=== PATIENT | female | born 1960 | race Caucasian/White ===

== ENCOUNTER → 2016-12-11 | Outpatient (CLI) | payer BC | DX: Z00.00 Encounter for general adult medical examination without abnormal findings (principal); E78.00 Pure hypercholesterolemia, unspecified ==

== ENCOUNTER → 2016-12-24 | Outpatient (CLI) | payer BC ==
--- NOTE | 2016-12-29 09:30 | Diagnostic Imaging Report ---
Bilateral screening mammogram. The current study was also evaluated with a Computer Aided Detection (CAD) system. INDICATION: Screening. No current complaints stated on the questionnaire. COMPARISON: 10/18/2014. FINDINGS: The breasts are composed of scattered fibroglandular densities. There is an asymmetry developed in the outer aspect of the left breast with lobulated oval shape measuring around 1 cm. The right breast is unchanged from the prior exams. IMPRESSION: Focal compression view and ultrasound evaluation for lateral left breast asymmetry is recommended. ACR BI-RADS Category 0: Incomplete. (Needs additional imaging evaluation). Result letter will be mailed to the patient. Note: At least 10% of breast cancer is not imaged by mammography. Dictated by: Dictated on workstation # [id number]
== END ==
LOC: RAD 11:26
PROVIDERS: ATTEND Internal Medicine
DX: Z12.31 Encounter for screening mammogram for malignant neoplasm of breast (principal)
CPT/HCPCS: 77067

== ENCOUNTER → 2017-01-12 | Outpatient (CLI) | payer BC ==
--- NOTE | 2017-01-12 09:09 | Diagnostic Imaging Report ---
EXAMINATION: Left breast diagnostic mammogram with a Computer Aided Detection (CAD) system. INDICATION: Lump in the outer aspect of the left breast. FINDINGS: There is a confirmed nodule in the outer aspect of the left breast with lobulated margins measuring 1.2 cm in size. There is suggestion of a fatty hilum in favor of an intramammary lymph node. IMPRESSION: Confirmed 1.2 cm lobulated nodule in the upper outer aspect of the left breast, probably an intramammary lymph node. Ultrasound evaluation is pending. ACR BI-RADS Category 0: Incomplete. (Needs additional imaging evaluation). Result letter will be mailed to the patient. Note: At least 10% of breast cancer is not imaged by mammography. Dictated by: Dictated on workstation # [id number]
--- NOTE | 2017-01-12 13:39 | Diagnostic Imaging Report ---
EXAMINATION: Left breast ultrasound. INDICATION: Nodule in the upper outer aspect of the left breast seen on mammography. FINDINGS: There is an elongated simple appearing cyst seen at the 2 o'clock zone 4 cm from the nipple measuring 0.8 x 0.5 x 0.9 cm. The rest of the outer aspect of the left breast was scanned with no underlying abnormality. IMPRESSION: There is a 9 mm oval simple cyst at the 2 o'clock zone 4 cm from the nipple which matches the mammographic abnormality with no suspicious finding. Annual screening mammograms are recommended. ACR BI-RADS Category 1: Negative. Dictated by: Dictated on workstation # [id number]
== END ==
LOC: RAD 08:25
PROVIDERS: ATTEND Internal Medicine
DX: N60.02 Solitary cyst of left breast (principal)
CPT/HCPCS: 76642

== ENCOUNTER → 2017-10-23 | Outpatient (CLI) | payer BC ==
--- NOTE | 2017-10-23 11:10 | Diagnostic Imaging Report ---
PROCEDURE: CT sinuses without contrast TECHNIQUE: Multiple contiguous axial images were obtained through the sinuses without the use of intravenous contrast. Coronal and sagittal reformations were then performed. INDICATION: Chronic sinusitis. Frontal sinus is clear. Ethmoid air cells and sphenoid sinus are clear. Bilateral maxillary sinuses are clear. Ostiomeatal complexes are patent. The nasal septum is midline. The mastoid air cells are well aerated. IMPRESSION: No evidence of sinusitis. Dictated by: Dictated on workstation # [id number]
== END ==
LOC: RAD 10:45
PROVIDERS: ATTEND Internal Medicine
DX: J32.9 Chronic sinusitis, unspecified (principal)
CPT/HCPCS: 70486

== ENCOUNTER → 2018-01-20 | Outpatient (CLI) | payer BC ==
--- NOTE | 2018-01-20 12:08 | Diagnostic Imaging Report ---
INDICATION: Routine screening. Comparison is made with prior exam from 12/24/2016 and 10/18/2014 and 10/12/2014. 2-D and 3-D bilateral screening mammography was performed with a Computer Aided Detection (CAD) system. FINDINGS: Both breasts are heterogeneously dense, limiting the sensitivity of mammography. There is a circumscribed density in the lateral portion of the left breast which appears to be larger when compared with prior exam. This has been previously shown to represent a simple cyst and is consistent with an enlarging cyst. No new mass is identified. No malignant appearing microcalcifications are seen. IMPRESSION: No mammographic features suspicious for malignancy are identified. ACR BI-RADS Category 2: Benign findings. Result letter will be mailed to the patient. Note: At least 10% of breast cancer is not imaged by mammography. Dictated by: Dictated on workstation # [id number]
== END ==
LOC: RAD 09:38
PROVIDERS: ATTEND Internal Medicine
DX: Z12.31 Encounter for screening mammogram for malignant neoplasm of breast (principal)
CPT/HCPCS: 77067

== ENCOUNTER → 2018-04-22 | Outpatient (CLI) | payer BC ==
--- NOTE | 2018-04-22 07:59 | Diagnostic Imaging Report ---
PROCEDURE: US Gallbladder. TECHNIQUE: Multiple real-time grayscale images were obtained over the right upper quadrant in various projections. INDICATION: Right upper quadrant abdominal pain FINDINGS: Grayscale imaging of the gallbladder reveals no intraluminal filling defect. There is no gallbladder wall thickening or pericholecystic fluid. No intra or extrahepatic biliary ductal dilatation is identified. There is a minimal hyperechoic focus in the anterior cortex of the right kidney which could represent fatty nodule. There is no posterior shadowing to suggest stone. There is no hydronephrosis or free fluid. No pancreatic, abdominal aortic or inferior vena caval abnormality is identified. IMPRESSION: Unremarkable gallbladder ultrasound. There may be small fatty lesion measuring up to 0.5 cm in size in the left kidney. Dictated by: Dictated on workstation # [id number]
== END ==
LOC: RAD 06:43
PROVIDERS: ATTEND Nurse Practitioner Family
DX: R10.11 Right upper quadrant pain (principal)
CPT/HCPCS: 76705

== ENCOUNTER → 2018-05-06 | Outpatient (CLI) | payer BC ==
[~2018-05-06] MED LIST: CATHETER FLUSH 10 ML SYR IV PRN
[2018-05-06 10:14] LABS: BASOPHILS % (AUTO) 1 % (0-10); EOSINOPHILS # (AUTO) 0.2 10^3/uL (0.0-0.3); EOSINOPHILS % (AUTO) 2 % (0-10); HEMATOCRIT 39 % (35-52); HEMOGLOBIN 13.2 G/DL (11.5-16.0); LYMPHOCYTES # (AUTO) 3.2 X 10^3 (1.0-4.0); LYMPHOCYTES % (AUTO) 46 % (12-44); MEAN CORPUSCULAR HEMOGLOBIN 30 PG (25-34); MEAN CORPUSCULAR HGB CONC 34 G/DL (32-36); MEAN CORPUSCULAR VOLUME 90 FL (80-99); MEAN PLATELET VOLUME 10.3 FL (7.4-10.4); MONOCYTES # (AUTO) 0.6 X 10^3 (0.0-1.0); MONOCYTES % (AUTO) 8 % (0-12); NEUTROPHILS % (AUTO) 43 % (42-75); PLATELET COUNT 259 10^3/uL (130-400); RED BLOOD COUNT 4.34 10^6/uL (4.35-5.85)
[2018-05-06 10:38] LABS: ALANINE AMINOTRANSFERASE 14 U/L (0-55); ALBUMIN 4.3 GM/DL (3.2-4.5); ALKALINE PHOSPHATASE 44 U/L (40-136); AMYLASE 34 U/L (25-125); BILIRUBIN,TOTAL 0.5 MG/DL (0.1-1.0); BUN/CREATININE RATIO 13; CARBON DIOXIDE 24 MMOL/L (21-32); CHLORIDE 106 MMOL/L (98-107); GFR ESTIMATED > 60; GLUCOSE 87 MG/DL (70-105); LIPASE 17 U/L (8-78); POTASSIUM 4.1 MMOL/L (3.6-5.0); SODIUM 139 MMOL/L (135-145); TOTAL PROTEIN 7.4 GM/DL (6.4-8.2)
[2018-05-06 10:52] LABS: ERYTHROCYTE SEDIMENTATION RATE 6 MM/HR (0-30)
--- NOTE | 2018-05-06 13:49 | Diagnostic Imaging Report ---
INDICATION: Abdominal pain. TECHNIQUE: Patient was administered 5 mCi technetium 99m Choletec intravenously and imaging of over the abdomen was performed. After 60 minutes gallbladder was not visualized. Patient then walked for 5 minutes and gallbladder was visualized. Ensure was administered and a gallbladder ejection fraction was calculated. FINDINGS: This homogeneous uptake of activity by the liver. There is excretion of activity into the common duct. Activity does pass into the gallbladder. There is passage into the small bowel. Gallbladder ejection fraction is abnormally low at 12%. Normal values are 33% or greater. IMPRESSION: 1. No evidence of cystic duct or common bile duct obstruction. 2. Abnormally low gallbladder ejection fraction of 12%. Dictated by: Dictated on workstation # [id number]
== END ==
LOC: CARD 09:56
PROVIDERS: ATTEND Internal Medicine
DX: Z00.00 Encounter for general adult medical examination without abnormal findings (principal); R70.0 Elevated erythrocyte sedimentation rate; R10.84 Generalized abdominal pain
CPT/HCPCS: 36415; 78227; 80053; 82150; 83690; 85025; 85652

== ENCOUNTER 2018-05-24 05:41 | Outpatient (CLI) | payer BC ==
[~2018-05-24] VITALS: Ht 160 cm; Wt 62.6 kg
[2018-05-24] MEDS ORDERED: ESTR0.5T PO (14:48)
[2018-05-24] MEDS ORDERED: LEVO50TA6 PO (14:48)
== END 2018-05-24 15:09 | disposition home or self-care (01) ==
LOC: PREOP 05:41
PROVIDERS: ATTEND Surgery
DX: Z01.818 Encounter for other preprocedural examination (principal)

== ENCOUNTER 2018-05-28 09:38 | Day surgery (SDC) | payer BC ==
[~2018-05-28] VITALS: Ht 160 cm; Wt 58.7 kg
[~2018-05-28 09:38] MED LIST changes: -CATHETER FLUSH 10 ML SYR IV PRN; +ESTR0.5T PO; +LEVO50TA6 PO
--- OUTSIDE RECORDS SUMMARY | 2018-05-28 09:41 | XMS REPORT | Clinical Summary ---
Author Author User, [employer] Organization Brittany Miguel DO, KARSONP Address Unknown Phone Allergies, Adverse Reactions, Alerts Allergy Name Reaction Description Start Date Severity Status Provider No Known Allergies Kevin Carson Conditions or Problems Problem Name Problem Code Onset Date Status Entry Date Provider Comment Standard Description Annotate HYPERTHYROIDISM 242.90 Resolved Brittany Miguel Thyrotoxicosis without mention of goiter or other cause, and without mention of thyrotoxic crisis or storm CHEST PAIN, ATYPICAL 786.59 Resolved Brittany Miguel Other chest pain RIGHT 719.41 Resolved Brittany Miguel Pain in joint involving shoulder region THYROID MASS 240.9 Resolved Brittany Miguel Goiter, unspecified HRT V07.4 Active Brittany Miguel Hormone replacement therapy (postmenopausal) NEVUS 216.9 Resolved Brittany Miguel Benign neoplasm of skin, site unspecified MENOPAUSAL SYNDROME 627.0 Active Brittany Miguel Premenopausal menorrhagia LEG PAIN, LEFT 729.5 Resolved Brittany Miguel Pain in limb EDEMA LEG 782.3 Resolved Brittany Miguel Edema HYPOTHYROIDISM, POSTSURGICAL 244.0 Active Brittany Miguel Postsurgical hypothyroidism PALPITATIONS, OCCASIONAL 785.1 Resolved Brittany Miguel Palpitations SYNCOPE 780.2 Resolved Brittany Miguel Syncope and collapse WELL WOMAN V70.0 Active Brittany Miguel Routine general medical examination at a health care facility ABNORMAL MAMMOGRAM, UNSPECIFIED 793.80 Active Brittany Miguel Abnormal mammogram, unspecified Medication List Medication Instructions Start Date Stop Date Generic Name NDC Status Provider Patient Instruction LEVOTHYROXINE SODIUM 50 MCG TABS 1 PO DAILY LEVOTHYROXINE SODIUM 06606599821 Active Tara Medina PREMARIN 0.9 MG TABS 1 PO DAILY ESTROGENS CONJUGATED 23232806988 Active Brittany Miguel PYRIDIUM 200 MG TAB 1 PO TID prn urinary urgency PHENAZOPYRIDINE HCL 31865745949 No Longer Active Christiana Estrada CIPRO 250 MG TABS 1 PO BID for 3 days CIPROFLOXACIN HCL 69985542002 No Longer Active Christiana Estrada CENESTIN 0.9 MG TABS 1 PO daily ESTROGENS CONJ SYNTHETIC A 40421067440 No Longer Active Tara Medina Immunizations Vaccine Administration Date Value Standard Description Influenza vaccine given Declines influenza virus vaccine, unspecified formulation Vital Signs Date Name Value Unit Range Description blood pressure, diastolic - 8462-4 74 mm[Hg] BP richey blood pressure, systolic - 8480-6 120 mm[Hg] BP sys pulse rate E&M - 8867-4 66 /min Heart rate respiratory rate E&M - 9279-1 14 /min Resp rate temperature E&M 98.6 [degF] Body temperature weight E&M - 3141-9 140 [lb_av] Weight Measured Diagnostic Results Date Name Value Unit Range Description Clinical Lists Update: CBC,CMP,FLP,TSH,FREE T4 - Chemistry Estimated Glomerular Filtration Rate (calc) >60 mL/min/1.73m2 glucose, plasma fasting 92 mg/dL albumin, serum 3.6 g/dL alkaline phosphatase, serum 61 U/L urea nitrogen, blood 12 mg/dL calcium, serum 8.3 mg/dL chloride, serum 104 mmol/L cholesterol, serum 201 mg/dL sodium, serum 136 mmol/L triglyceride, serum, fasting 139 mg/dL bilirubin, serum, total 0.4 mg/dL alanine aminotransferase (SGPT), serum 27 U/L aspartate aminotransferase (SGOT), serum 17 U/L protein, total, serum 7.5 g/dL potassium, serum 4.1 mmol/L LDL cholesterol, serum 129 mg/dL thyroid stimulating hormone, serum 0.56 u[iU]/mL HDL cholesterol, serum 44 mg/dL thyroxine, serum, free 0.70 ng/dL creatinine, serum 0.70 mg/dL carbon dioxide, venous blood 26 mmol/L Clinical Lists Update: CBC,CMP,FLP,TSH,FREE T4 - Hematology platelet count 242 10*3/mm3 erythrocyte (RBC) count 4.30 10*6/mm3 leukocyte count, blood 6.5 10*3/mm3 mean corpuscular volume, RBC 93.9 fL red blood cell distribution width 11.8 % hemoglobin, blood 13.2 g/dL hematocrit, blood 40.3 % Encounters Code Encounter Date Provider Facility CPT-20283 Ofc Vst, Est Level IV 14:35:51 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 Brittany Miguel DO FACP CPT-49746 Ofc Vst, Est Level IV 10:39:24 CDT Brittany Miguel DO, FACP CPT-02934 Ofc Vst, Est Level V 11:35:02 CDT Brittany Miguel DO, FACP CPT-96473 Ofc Vst, Est Level IV 14:21:30 CDT Brittanyshahla Miguel [facility] CPT-16522 Ofc Vst, Est Level IV 14:26:06 CDT Brittany Miguel DO, [facility] CPT-37272 Ofc Vst, New Level III 15:41:29 CDT Brittany Miguel DO, FACP Procedures Code Procedure Name Date Entry Date Standard Description CPT-97082 Preventive, Est, (40-64) 17:59:01 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 CPT-56626 Preventive, Est, (40-64) 15:37:23 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 CPT-07170 Preventive, Est, (40-64) 13:13:07 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
--- OUTSIDE RECORDS SUMMARY | 2018-05-28 09:41 | XMS REPORT | Clinical Summary ---
Author Author User, [employer] Brittany Miguel DO, FACP Address Unknown Phone Allergies, Adverse Reactions, Alerts [...] storm CHEST PAIN, ATYPICAL 786.59 Resolved Brittany Miugel Other chest pain RIGHT 719.41 Resolved Brittany [...] MCG TABS 1 PO DAILY LEVOTHYROXINE SODIUM 44797998915 Active Tara Medina PREMARIN 0.9 MG TABS 1 PO DAILY ESTROGENS CONJUGATED 74063827510 Active Brittany Miguel PYRIDIUM 200 MG TAB 1 PO TID prn urinary urgency PHENAZOPYRIDINE HCL 49311261541 No Longer Active Christiana Estrada CIPRO 250 MG TABS 1 PO BID for 3 days CIPROFLOXACIN HCL 52241542462 No Longer Active Christiana Estrada CENESTIN 0.9 MG TABS 1 PO daily ESTROGENS CONJ SYNTHETIC A 54630952755 No Longer Active Tara Medina Immunizations Vaccine [...] % Encounters Code Encounter Date Provider Facility CPT-24175 Ofc Vst, Est Level IV 14:35:51 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 Brittany Miguel DO FACP CPT-88465 Ofc Vst, Est Level IV 10:39:24 CDT Brittany Miguel DO, FACP CPT-24217 Ofc Vst, Est Level V 11:35:02 CDT Brittany Miguel DO FACP CPT-52939 Ofc Vst, Est Level IV 14:21:30 CDT Brittanyshahla Miguel [facility] [facility] CPT-85954 Ofc Vst, Est Level IV 14:26:06 CDT Brittany Miguel DO, [place] CPT-44209 Ofc Vst, New Level III 15:41:29 CDT Brittany Miguel DO, FACP Procedures Code Procedure Name Date Entry Date Standard Description CPT-36536 Preventive, Est, (40-64) 17:59:01 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 CPT-59560 Preventive, Est, (40-64) 15:37:23 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 CPT-47143 Preventive, Est, (40-64) 13:13:07 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
--- OUTSIDE RECORDS SUMMARY | 2018-05-28 09:42 | XMS REPORT | Clinical Summary ---
Author Author User, [employer] Organization Brittany Miguel DO, KARSONP Address Unknown [...] MCG TABS 1 PO DAILY LEVOTHYROXINE SODIUM 74753374437 Active Tara Medina PREMARIN 0.9 MG TABS 1 PO DAILY ESTROGENS CONJUGATED 02885483554 Active Brittany Miguel PYRIDIUM 200 MG TAB 1 PO TID prn urinary urgency PHENAZOPYRIDINE HCL 50389782672 No Longer Active Christiana Estrada CIPRO 250 MG TABS 1 PO BID for 3 days CIPROFLOXACIN HCL 85974060711 No Longer Active Christiana Estrada CENESTIN 0.9 MG TABS 1 PO daily ESTROGENS CONJ SYNTHETIC A 07408873864 No Longer Active Tara Medina Immunizations Vaccine [...] % Encounters Code Encounter Date Provider Facility CPT-61386 Ofc Vst, Est Level IV 14:35:51 TALENT BUYER Brittany Miguel DO FACP CPT-85859 Ofc Vst, Est Level IV 10:39:24 CDT Brittany Miguel DO, FACP CPT-63515 Ofc Vst, Est Level V 11:35:02 CDT Brittany Miguel DO, FACP CPT-52858 Ofc Vst, Est Level IV 14:21:30 CDT Brittanyshahla Miguel [facility] CPT-50874 Ofc Vst, Est Level IV 14:26:06 CDT Brittany Miguel DO, [facility] CPT-62870 Ofc Vst, New Level III 15:41:29 CDT Brittany Miguel DO, FACP Procedures Code Procedure Name Date Entry Date Standard Description CPT-04901 Preventive, Est, (40-64) 17:59:01 TALENT BUYER CPT-81487 Preventive, Est, (40-64) 15:37:23 TALENT BUYER CPT-54181 Preventive, Est, (40-64) 13:13:07 TALENT BUYER
--- OUTSIDE RECORDS SUMMARY | 2018-05-28 09:42 | XMS REPORT | Clinical Summary ---
Author Author celestino olmos DO, [place] [address] Phone Unavailable Allergies, Adverse Reactions, Alerts Allergy Name Reaction Description Start Date Severity Status Provider No Known Allergies Kevin Carson Conditions or Problems Problem Name Problem Code Onset Date Status Entry Date Provider Comment Standard Description Annotate HRT V07.4 Active Brittany Miguel HORMONE REPLACEMENT THERAPY (POSTMENOPAUSAL) MENOPAUSAL SYNDROME 627.0 Active Brittany Miguel PREMENOPAUSAL MENORRHAGIA HYPOTHYROIDISM, POSTSURGICAL 244.0 Active Brittany Miguel POSTSURGICAL HYPOTHYROIDISM WELL WOMAN V70.0 Active Brittany Miguel ROUTINE GENERAL MEDICAL EXAMINATION AT HEALTH CARE FACILITY Medication List Medication Instructions Start Date Stop Date Generic Name NDC Status Provider Patient Instruction LEVOTHROID 50 MCG TABS 1 PO daily LEVOTHYROXINE SODIUM Active Brittany Miguel PREMARIN 0.9 MG TABS 1 PO DAILY ESTROGENS CONJUGATED 14090649478 Active Tara Medina Immunizations Vaccine Administration Date Value Standard Description Influenza vaccine Declines influenza virus vaccine, unspecified formulation Vital Signs Date Name Value Unit Range Description blood pressure, diastolic 80 mm[Hg] BP richey blood pressure, systolic 122 mm[Hg] BP sys pulse rate E&M 78 /min Heart rate respiratory rate E&M 14 /min Resp rate weight E&M 142 [lb_av] Weight Measured Diagnostic Results Date Name Value Unit Range Description Clinical Lists Update: CBC,CMP,FLP,TSH - Chemistry Estimated Glomerular Filtration Rate (calc) >60 mL/min/1.73m2 glucose, plasma fasting 89 mg/dL albumin, serum 3.1 g/dL alkaline phosphatase, serum 67 U/L urea nitrogen, blood 11 mg/dL calcium, serum 8.5 mg/dL chloride, serum 103 mmol/L cholesterol, serum 213 mg/dL sodium, serum 136 mmol/L triglyceride, serum, fasting 95 mg/dL bilirubin, serum, total 0.3 mg/dL alanine aminotransferase (SGPT), serum 40 U/L aspartate aminotransferase (SGOT), serum 24 U/L protein, total, serum 7.7 g/dL potassium, serum 3.8 mmol/L LDL cholesterol, serum 139 mg/dL thyroid stimulating hormone, serum 0.47 u[iU]/mL HDL cholesterol, serum 55 mg/dL thyroxine, serum, free 0.80 ng/dL creatinine, serum 0.63 mg/dL carbon dioxide, venous blood 27 mmol/L Clinical Lists Update: CBC,CMP,FLP,TSH - Hematology platelet count 239 10*3/mm3 erythrocyte (RBC) count 4.33 10*6/mm3 leukocyte count, blood 7.2 10*3/mm3 mean corpuscular volume, RBC 92.7 fL red blood cell distribution width 12.1 % hemoglobin, blood 13.1 g/dL hematocrit, blood 40.1 %
--- OUTSIDE RECORDS SUMMARY | 2018-05-28 09:42 | XMS REPORT | Clinical Summary ---
Author Author User, [employer] Organization Brittany Miguel DO, KARSONP Address Unknown [...] MCG TABS 1 PO DAILY LEVOTHYROXINE SODIUM 62118724033 Active Tara Medina PREMARIN 0.9 MG TABS 1 PO DAILY ESTROGENS CONJUGATED 29254394484 Active Brittany Miguel PYRIDIUM 200 MG TAB 1 PO TID prn urinary urgency PHENAZOPYRIDINE HCL 53912498148 No Longer Active Christiana Estrada CIPRO 250 MG TABS 1 PO BID for 3 days CIPROFLOXACIN HCL 74407005044 No Longer Active Christiana Estrada CENESTIN 0.9 MG TABS 1 PO daily ESTROGENS CONJ SYNTHETIC A 32274357823 No Longer Active Tara Medina Immunizations Vaccine [...] % Encounters Code Encounter Date Provider Facility CPT-84597 Ofc Vst, Est Level IV 14:35:51 LEVER OPERATOR Brittany Miguel DO FACP CPT-76936 Ofc Vst, Est Level IV 10:39:24 CDT Brittany Miguel DO, FACP CPT-29232 Ofc Vst, Est Level V 11:35:02 CDT Brittany Miguel DO, FACP CPT-23061 Ofc Vst, Est Level IV 14:21:30 CDT Brittanyshahla Miguel [facility] CPT-59515 Ofc Vst, Est Level IV 14:26:06 CDT Brittany Miguel DO, [facility] CPT-89063 Ofc Vst, New Level III 15:41:29 CDT Brittany Miguel DO, FACP Procedures Code Procedure Name Date Entry Date Standard Description CPT-52569 Preventive, Est, (40-64) 17:59:01 LEVER OPERATOR CPT-76303 Preventive, Est, (40-64) 15:37:23 LEVER OPERATOR CPT-61701 Preventive, Est, (40-64) 13:13:07 LEVER OPERATOR
--- OUTSIDE RECORDS SUMMARY | 2018-05-28 09:42 | XMS REPORT | Continuity of Care Document ---
Author Author [facility] Organization [facility] Address Unknown Phone Unavailable Allergies Active Description Code Type Severity Reaction Onset Reported/Identified Relationship to Patient Clinical Status Yes No Known Drug Allergies [id number] Drug Allergy Unknown N/A 05/24/2018 Medications There is no data. Problems Date Dx Coded Attending Type Code Diagnosis Diagnosed By 10/22/2015 Ot 242.90 THYROTOX NOS NO CRISIS 10/22/2015 Ot 244.0 POSTSURGICAL HYPOTHYROID 10/22/2015 Ot 627.0 PREMENOPAUSE MENORRHAGIA 10/22/2015 Ot 729.5 PAIN IN LIMB 10/22/2015 Ot 780.2 SYNCOPE AND COLLAPSE 10/22/2015 Ot 782.3 EDEMA 10/22/2015 Ot 785.1 PALPITATIONS 10/22/2015 Ot 786.59 CHEST PAIN NEC 10/22/2015 Ot V07.4 HORMONE REPLACEMENT THERAPY (POSTMENOPAU 10/24/2015 SINGH DO, ANDREINA Ot E89.0 POSTPROCEDURAL HYPOTHYROIDISM 10/24/2015 ANDREINA SINGH DO Ot Z00.00 ENCNTR FOR GENERAL ADULT MEDICAL EXAM W/ 10/31/2015 MOHAN SINGH DOI Ot E89.0 POSTPROCEDURAL HYPOTHYROIDISM 10/31/2015 ANDREINA SINGH DO Ot Z00.00 ENCNTR FOR GENERAL ADULT MEDICAL EXAM W12/11/2016 Ot 242.90 THYROTOX NOS NO CRISIS 12/11/2016 Ot 244.0 POSTSURGICAL HYPOTHYROID 12/11/2016 Ot 627.0 PREMENOPAUSE MENORRHAGIA 12/11/2016 Ot 729.5 PAIN IN LIMB 12/11/2016 Ot 780.2 SYNCOPE AND COLLAPSE 12/11/2016 Ot 782.3 EDEMA 12/11/2016 Ot 785.1 PALPITATIONS 12/11/2016 Ot 786.59 CHEST PAIN NEC 12/11/2016 Ot V07.4 HORMONE REPLACEMENT THERAPY (POSTMENOPAU 12/11/2016 SINGH DO, ANDREINA Ot E89.0 POSTPROCEDURAL HYPOTHYROIDISM 12/11/2016 SINGH DO, ANDREINA Ot Z00.00 ENCNTR FOR GENERAL ADULT MEDICAL EXAM W12/12/2016 SINGH DO, ANDREINA Ot E78.00 PURE HYPERCHOLESTEROLEMIA, UNSPECIFIED 12/12/2016 SINGH DO, ANDREINA Ot Z00.00 ENCNTR FOR GENERAL ADULT MEDICAL EXAM W12/24/2016 SINGH DO, ANDREINA Ot E78.00 PURE HYPERCHOLESTEROLEMIA, UNSPECIFIED 12/24/2016 SINGH DO, ANDREINA Ot Z00.00 ENCNTR FOR GENERAL ADULT MEDICAL EXAM W12/25/2016 SINGH DO, ANDREINA Ot Z12.31 ENCNTR SCREEN MAMMOGRAM FOR MALIGNANT NE 01/12/2017 SINGH DO, ANDREINA Ot Z12.31 ENCNTR SCREEN MAMMOGRAM FOR MALIGNANT NE 01/28/2017 SINGH DO, ANDREINA Ot N60.02 SOLITARY CYST OF LEFT BREAST 10/26/2017 SINGH DO, ANDREINA Ot J32.9 CHRONIC SINUSITIS, UNSPECIFIED 11/04/2017 SINGH DO, ANDREINA Ot J32.9 CHRONIC SINUSITIS, UNSPECIFIED 12/15/2017 SINGH DO, ANDREINA Ot E78.00 PURE HYPERCHOLESTEROLEMIA, UNSPECIFIED 12/15/2017 SINGH DO, ANDREINA Ot E78.1 PURE HYPERGLYCERIDEMIA 12/15/2017 SINGH DO, ANDREINA Ot Z00.00 ENCNTR FOR GENERAL ADULT MEDICAL EXAM W12/22/2017 SINGH DO, ANDREINA Ot E78.00 PURE HYPERCHOLESTEROLEMIA, UNSPECIFIED 12/22/2017 SINGH DO, ANDREINA Ot E78.1 PURE HYPERGLYCERIDEMIA 12/22/2017 SINGH DO, ANDREINA Ot Z00.00 ENCNTR FOR GENERAL ADULT MEDICAL EXAM W04/23/2018 NEMO SIFUENTES Ot R10.11 RIGHT UPPER QUADRANT PAIN 05/21/2018 SINGH DO, ANDREINA Ot R10.84 GENERALIZED ABDOMINAL PAIN 05/21/2018 SINGH DO ANDREINA Ot R70.0 ELEVATED ERYTHROCYTE SEDIMENTATION RATE 05/21/2018 SINGH DO, ANDREINA Ot Z00.00 ENCNTR FOR GENERAL ADULT MEDICAL EXAM W05/24/2018 CECILIO WILKES MD Ot Z01.818 ENCOUNTER FOR OTHER PREPROCEDURAL EXAMIN Procedures There is no data. Results Test Result Range Complete blood count (CBC) with automated white blood cell (WBC) differential - 12/11/16 08:41 Blood leukocytes automated count (number/volume) 6.7 10*3/uL 4.3-11.0 Blood erythrocytes automated count (number/volume) 4.25 10*6/uL 4.35-5.85 Venous blood hemoglobin measurement (mass/volume) 13.1 g/dL 11.5-16.0 Blood hematocrit (volume fraction) 38 % 35-52 Automated erythrocyte mean corpuscular volume 90 [foz_us] 80-99 Automated erythrocyte mean corpuscular hemoglobin (mass per erythrocyte) 31 pg 25-34 Automated erythrocyte mean corpuscular hemoglobin concentration measurement ( mass/volume) 34 g/dL 32-36 Automated erythrocyte distribution width ratio 12.5 % 10.0-14.5 Automated blood platelet count (count/volume) 253 10*3/uL 130-400 Automated blood platelet mean volume measurement 10.8 [foz_us] 7.4-10.4 Automated blood neutrophils/100 leukocytes 50 % 42-75 Automated blood lymphocytes/100 leukocytes 40 % 12-44 Blood monocytes/100 leukocytes 7 % 0-12 Automated blood eosinophils/100 leukocytes 2 % 0-10 Automated blood basophils/100 leukocytes 1 % 0-10 Blood neutrophils automated count (number/volume) 3.3 10*3 1.8-7.8 Blood lymphocytes automated count (number/volume) 2.7 10*3 1.0-4.0 Blood monocytes automated count (number/volume) 0.5 10*3 0.0-1.0 Automated eosinophil count 0.2 10*3/uL 0.0-0.3 Automated blood basophil count (count/volume) 0.1 10*3/uL 0.0-0.1 Comprehensive metabolic panel - 12/11/16 08:41 Serum or plasma sodium measurement (moles/volume) 138 mmol/L 135-145 Serum or plasma potassium measurement (moles/volume) 3.8 mmol/L 3.6-5.0 Serum or plasma chloride measurement (moles/volume) 105 mmol/L 98-107 Carbon dioxide 25 mmol/L 21-32 Serum or plasma anion gap determination (moles/volume) 8 mmol/L 5-14 Serum or plasma urea nitrogen measurement (mass/volume) 10 mg/dL 7-18 Serum or plasma creatinine measurement (mass/volume) 0.74 mg/dL 0.60-1.30 Serum or plasma urea nitrogen/creatinine mass ratio 14 0 -20 Serum or plasma creatinine measurement with calculation of estimated glomerular filtration rate > NRG Serum or plasma glucose measurement (mass/volume) 92 mg/dL 70-105 Serum or plasma calcium measurement (mass/volume) 9.2 mg/dL 8.5-10.1 Serum or plasma total bilirubin measurement (mass/volume) 0.5 mg/dL 0.1-1.0 Serum or plasma alkaline phosphatase measurement (enzymatic activity/volume) 44 U/L 40-136 Serum or plasma aspartate aminotransferase measurement (enzymatic activity/ volume) 18 U/L 5-34 Serum or plasma alanine aminotransferase measurement (enzymatic activity/volume ) 14 U/L 0-55 Serum or plasma protein measurement (mass/volume) 7.7 g/dL 6.4-8.2 Serum or plasma albumin measurement (mass/volume) 4.2 g/dL 3.2-4.5 Lipid 1996 panel - 12/11/16 08:41 Serum or plasma triglyceride measurement (mass/volume) 122 mg/dL <150 Serum or plasma cholesterol measurement (mass/volume) 230 mg/dL < 200 Serum or plasma cholesterol in HDL measurement (mass/volume) 50 mg/ dL 40-60 Cholesterol in LDL [mass/volume] in serum or plasma by direct assay 155 mg/dL 1-129 Serum or plasma cholesterol in VLDL measurement (mass/volume) 24 mg/ dL 5-40 THYROID STIMULATING HORMONE - 12/11/16 08:41 THYROID STIMULATING HORMONE 0.48 u[iU]/mL 0.35-4.94 Complete blood count (CBC) with automated white blood cell (WBC) differential - 12/11/17 09:12 Blood leukocytes automated count (number/volume) 8.5 10*3/uL 4.3-11.0 Blood erythrocytes automated count (number/volume) 4.42 10*6/uL 4.35-5.85 Venous blood hemoglobin measurement (mass/volume) 14.2 g/dL 11.5-16.0 Blood hematocrit (volume fraction) 40 % 35-52 Automated erythrocyte mean corpuscular volume 89 [foz_us] 80-99 Automated erythrocyte mean corpuscular hemoglobin (mass per erythrocyte) 32 pg 25-34 Automated erythrocyte mean corpuscular hemoglobin concentration measurement ( mass/volume) 36 g/dL 32-36 Automated erythrocyte distribution width ratio 12.5 % 10.0-14.5 Automated blood platelet count (count/volume) 275 10*3/uL 130-400 Automated blood platelet mean volume measurement 10.6 [foz_us] 7.4-10.4 Automated blood neutrophils/100 leukocytes 52 % 42-75 Automated blood lymphocytes/100 leukocytes 39 % 12-44 Blood monocytes/100 leukocytes 8 % 0-12 Automated blood eosinophils/100 leukocytes 1 % 0-10 Automated blood basophils/100 leukocytes 1 % 0-10 Blood neutrophils automated count (number/volume) 4.4 10*3 1.8-7.8 Blood lymphocytes automated count (number/volume) 3.3 10*3 1.0-4.0 Blood monocytes automated count (number/volume) 0.7 10*3 0.0-1.0 Automated eosinophil count 0.1 10*3/uL 0.0-0.3 Automated blood basophil count (count/volume) 0.1 10*3/uL 0.0-0.1 Comprehensive metabolic panel - 12/11/17 09:12 Serum or plasma sodium measurement (moles/volume) 138 mmol/L 135-145 Serum or plasma potassium measurement (moles/volume) 4.2 mmol/L 3.6-5.0 Serum or plasma chloride measurement (moles/volume) 104 mmol/L 98-107 Carbon dioxide 24 mmol/L 21-32 Serum or plasma anion gap determination (moles/volume) 10 mmol/L 5-14 Serum or plasma urea nitrogen measurement (mass/volume) 9 mg/dL 7-18 Serum or plasma creatinine measurement (mass/volume) 0.75 mg/dL 0.60-1.30 Serum or plasma urea nitrogen/creatinine mass ratio 12 NRG Serum or plasma creatinine measurement with calculation of estimated glomerular filtration rate > NRG Serum or plasma glucose measurement (mass/volume) 93 mg/dL 70-105 Serum or plasma calcium measurement (mass/volume) 9.6 mg/dL 8.5-10.1 Serum or plasma total bilirubin measurement (mass/volume) 0.6 mg/dL 0.1-1.0 Serum or plasma alkaline phosphatase measurement (enzymatic activity/volume) 40 U/L 40-136 Serum or plasma aspartate aminotransferase measurement (enzymatic activity/ volume) 20 U/L 5-34 Serum or plasma alanine aminotransferase measurement (enzymatic activity/volume ) 19 U/L 0-55 Serum or plasma protein measurement (mass/volume) 7.9 g/dL 6.4-8.2 Serum or plasma albumin measurement (mass/volume) 4.5 g/dL 3.2-4.5 Lipid 1996 panel - 12/11/17 09:12 Serum or plasma triglyceride measurement (mass/volume) 164 mg/dL <150 Serum or plasma cholesterol measurement (mass/volume) 263 mg/dL < 200 Serum or plasma cholesterol in HDL measurement (mass/volume) 54 mg/ dL 40-60 Cholesterol in LDL [mass/volume] in serum or plasma by direct assay 183 mg/dL 1-129 Serum or plasma cholesterol in VLDL measurement (mass/volume) 33 mg/ dL 5-40 THYROID STIMULATING HORMONE - 12/11/17 09:12 THYROID STIMULATING HORMONE 0.57 u[iU]/mL 0.35-4.94 Complete blood count (CBC) with automated white blood cell (WBC) differential - 05/06/18 10:10 Blood leukocytes automated count (number/volume) 7.0 10*3/uL 4.3-11.0 Blood erythrocytes automated count (number/volume) 4.34 10*6/uL 4.35-5.85 Venous blood hemoglobin measurement (mass/volume) 13.2 g/dL 11.5-16.0 Blood hematocrit (volume fraction) 39 % 35-52 Automated erythrocyte mean corpuscular volume 90 [foz_us] 80-99 Automated erythrocyte mean corpuscular hemoglobin (mass per erythrocyte) 30 pg 25-34 Automated erythrocyte mean corpuscular hemoglobin concentration measurement ( mass/volume) 34 g/dL 32-36 Automated erythrocyte distribution width ratio 12.0 % 10.0-14.5 Automated blood platelet count (count/volume) 259 10*3/uL 130-400 Automated blood platelet mean volume measurement 10.3 [foz_us] 7.4-10.4 Automated blood neutrophils/100 leukocytes 43 % 42-75 Automated blood lymphocytes/100 leukocytes 46 % 12-44 Blood monocytes/100 leukocytes 8 % 0-12 Automated blood eosinophils/100 leukocytes 2 % 0-10 Automated blood basophils/100 leukocytes 1 % 0-10 Blood neutrophils automated count (number/volume) 3.0 10*3 1.8-7.8 Blood lymphocytes automated count (number/volume) 3.2 10*3 1.0-4.0 Blood monocytes automated count (number/volume) 0.6 10*3 0.0-1.0 Automated eosinophil count 0.2 10*3/uL 0.0-0.3 Automated blood basophil count (count/volume) 0.0 10*3/uL 0.0-0.1 Erythrocyte sedimentation rate by westergren method - 05/06/18 10:10 Erythrocyte sedimentation rate by westergren method 6 mm 0-30 Encounters ACCT No. Visit Date/Time Discharge Status Pt. Type Provider Facility Loc./Unit Complaint [id number] 05/24/2018 05:41:00 05/24/2018 15:09:00 DIS Outpatient CECILIO WILKES MD [facility] PREOP BILIARY DYSKINESIA, SCREENING [id number] 05/06/2018 09:56:00 05/06/2018 23:59:59 CLS Outpatient SINGH DO, ANDREINA [facility] CARD GENERALIZED ABD PAIN [id number] 04/22/2018 06:43:00 04/22/2018 23:59:59 CLS Outpatient NEMO SIFUENTES PHYSICIAN OBSTETRICIAN [facility] RAD RUQ ABD PAIN [id number] 01/20/2018 10:00:00 01/20/2018 23:59:59 CLS Preadmit SINGH DO, ANDREINA [facility] RAD SCREENING [id number] 12/11/2017 08:57:00 12/11/2017 23:59:59 CLS Outpatient SINGH DO, ANDREINA [facility] LAB PURE HYPERGLYCERIDEMIA [id number] 10/23/2017 10:45:00 10/23/2017 23:59:59 CLS Outpatient SINGH DO, ANDREINA [facility] RAD CHRONIC SINUSITIS [id number] 01/12/2017 08:25:00 01/12/2017 23:59:59 CLS Outpatient SINGH DO, ANDREINA [facility] RAD R92.0 [id number] 12/24/2016 11:26:00 12/24/2016 23:59:59 CLS Outpatient SINGH DO, ANDREINA [facility] RAD Z12.31 SCREENING [id number] 12/11/2016 08:26:00 12/11/2016 23:59:59 CLS Outpatient ANDREINA SINGH DO [facility] LAB E78.0 Z00.00 [id number] 10/22/2015 07:45:00 10/22/2015 23:59:59 CLS Outpatient ANDREINA SINGH DO [facility] LAB GENERAL MEDICAL EXAM, POSTPROCEDURAL HYPOTHYROIDISM [id number] 05/28/2018 12:00:00 PEN Preadmit CECILIO WILKES MD [facility] BILIARY DYSKINESIA,SCREENING [id number] 10/22/2015 07:45:00 Document Registration [id number] 05/10/2012 10:01:00 Document Registration
--- OUTSIDE RECORDS SUMMARY | 2018-05-28 09:42 | XMS REPORT | Clinical Summary ---
Author Author celestino olmos DO, [place] [address] Phone Unavailable Allergies, Adverse Reactions, Alerts Allergy [...] MG TABS 1 PO DAILY ESTROGENS CONJUGATED [id number] Active Tara Medina Immunizations Vaccine Administration Date [...]
--- OUTSIDE RECORDS SUMMARY | 2018-05-28 09:42 | XMS REPORT | Clinical Summary ---
Author Author celestino olmos DO, [place] [address] Phone Unavailable Allergies, Adverse Reactions, Alerts Allergy [...] Generic Name NDC Status Provider Patient Instruction CENESTIN 0.9 MG TABS 1 PO daily ESTROGENS CONJ SYNTHETIC A [id number] Active Tara Medina LEVOTHROID 50 MCG TABS 1 PO daily LEVOTHYROXINE SODIUM Active Brittany Miguel Immunizations Vaccine Administration Date Value Standard Description Influenza vaccine Declines influenza virus vaccine, unspecified formulation Vital Signs Date Name Value Unit Range Description blood pressure, diastolic 80 mm[Hg] BP richey blood pressure, systolic 122 mm[Hg] BP sys pulse rate E&M 78 /min Heart rate respiratory rate E&M 14 /min Respiratory rate weight E&M 142 [lb_av] Weight Measured [...]
--- OUTSIDE RECORDS SUMMARY | 2018-05-28 09:42 | XMS REPORT | Clinical Summary ---
Author Author User, [employer] Brittany Miguel DO, FACP Address Unknown Phone [...] MCG TABS 1 PO DAILY LEVOTHYROXINE SODIUM 57202102954 Active Tara Medina PREMARIN 0.9 MG TABS 1 PO DAILY ESTROGENS CONJUGATED 80439589407 Active Brittany Miguel PYRIDIUM 200 MG TAB 1 PO TID prn urinary urgency PHENAZOPYRIDINE HCL 19774079974 No Longer Active Christiana Estrada CIPRO 250 MG TABS 1 PO BID for 3 days CIPROFLOXACIN HCL 63645396421 No Longer Active Christiana Estrada CENESTIN 0.9 MG TABS 1 PO daily ESTROGENS CONJ SYNTHETIC A 56881748866 No Longer Active Tara Medina Immunizations Vaccine [...] % Encounters Code Encounter Date Provider Facility CPT-57190 Ofc Vst, Est Level IV 14:35:51 [facility] Brittany Miguel DO FACP CPT-07013 Ofc Vst, Est Level IV 10:39:24 CDT Brittany Miguel DO, FACP CPT-99914 Ofc Vst, Est Level V 11:35:02 CDT Brittany Miguel DO FACP CPT-66636 Ofc Vst, Est Level IV 14:21:30 CDT Brittanyshahla Miguel [facility] CPT-83646 Ofc Vst, Est Level IV 14:26:06 CDT Brittany Miguel DO, VICTORIA CPT-09847 Ofc Vst, New Level III 15:41:29 CDT Birttany Miguel DO, FACP Procedures Code Procedure Name Date Entry Date Standard Description CPT-64770 Preventive, Est, (40-64) 17:59:01 [facility] CPT-56460 Preventive, Est, (40-64) 15:37:23 [facility] CPT-17085 Preventive, Est, (40-64) 13:13:07 [facility]
[2018-05-28 09:45] VITALS: BP 128/84
--- NOTE | 2018-05-28 09:54 | Progress Note-Pre Operative ---
Pre-Operative Progress Note H&P Reviewed The H&P was reviewed, patient examined and no changes noted. Date Seen by Provider: May 28, 2018 Time Seen by Provider: 09:45 Date H&P Reviewed: May 28, 2018 Time H&P Reviewed: 09:50 Pre-Operative Diagnosis: Biliary Dyskinesia, Screening colonosocpy SHIRA MAYBERRY APRN May 28, 2018 09:54
[2018-05-28] MEDS ORDERED: HYDR-3816 PO (09:55)
--- NOTE | 2018-05-28 09:57 | Discharge Inst-Surgical ---
D/C Lap Instructions-KIDO New, Converted, or Re-Newed RX: RX on Chart Follow Up Appt in 2 weeks Activity as tolerated No driving for 24 hours No [address] while on pain medications Incentive Spirometry use every 2 hours while awake Regular Diet Symptoms to Report: Fever over 101 degree F, Nausea/Vomiting Infection Signs and Symptoms to report: Increased redness, Foul odor of wound, Increased drainage Bathing instructions: May shower Operative Area Clean/Dry; Keep incision clean/dry If any problems/questions: Contact your physician or go to Emergency Room SHIRA MAYBERRY APRN May 28, 2018 09:57
[2018-05-28] MEDS ORDERED: HYDROcodone/APAP 5 MG/325 MG (LORTAB) TAB PO ONE (10:00)
[2018-05-28] MEDS ORDERED: morphine INJ 10 MG/ML 1ML (SYR OR VIAL) IVP PRN (10:00)
[2018-05-28] MEDS ORDERED: ACETAMINOPHEN 325 MG TABLET PO PRN (10:00)
[2018-05-28] MEDS ORDERED: ONDANSETRON 4 MG/2 ML (SDV) Z0FRAN IVP PRN ×2 (10:00→13:45)
[2018-05-28] MEDS ORDERED: ceFAZolin INJECTION 1,000 MG in NS (IVPB) 50 ML IV ONE (10:15)
[2018-05-28] MEDS: LACTATED RINGERS 1,000 ML IV PRN ×3 (10:16→13:25)
[2018-05-28] MEDS ORDERED: BUP/EPI 0.5% 1:200,000 (SENSORCAINE) 30 ML VIAL ONE (10:46)
[2018-05-28] MEDS ORDERED: FAMOTIDINE 20MG/2ML IV (PEPCID) IV ONE (11:00)
[2018-05-28] MEDS ORDERED: MIDAZOLAM 2 MG/2 ML (VERSED) VIAL IV ONE (11:00)
[2018-05-28] MEDS ORDERED: fentaNYL INJECTION 100 MCG/2 ML AMP ONE (11:42)
[2018-05-28] MEDS ORDERED: proPOfol 200 MG/20 ML (DIPRIVAN) VIAL IV ONE (11:42)
[2018-05-28] MEDS ORDERED: MIDAZOLAM 2 MG/2 ML (VERSED) VIAL ONE (11:42)
[2018-05-28] MEDS ORDERED: LIDOCAINE PF 2% 5 ML (XYLOCAINE) VIAL ONE (11:42)
[2018-05-28] MEDS ORDERED: DEXAMETHASONE 10 MG/ML (DECADRON) 1 ML VIAL ONE (12:53)
[2018-05-28] MEDS ORDERED: SEVOFLURANE (ULTANE) 15 ML INHAL SOLN ONE ×7 (12:53→13:14)
[2018-05-28] MEDS ORDERED: PHENYLEPHRINE INJ 10 MG/ML (NEO-SYNEPHRINE 1%) ONE (12:53)
[2018-05-28] MEDS ORDERED: ROCURONIUM 10 MG/ML 5 ML SYRINGE IV ONE (12:53)
[2018-05-28] MEDS ORDERED: ONDANSETRON 4 MG/2 ML (SDV) Z0FRAN ONE (12:53)
[2018-05-28] MEDS ORDERED: NEOSTIGMINE 1 MG/ML 5 ML SYRINGE ONE (12:54)
[2018-05-28] MEDS ORDERED: GLYCOPYRROLATE 0.2 MG/ML (ROBINUL) 2 ML VIAL ONE (12:54)
[2018-05-28] MEDS ORDERED: PHENYLEPHRINE 100 MCG/ML 10 ML (ANESTHESIA) SYR ONE (13:24)
--- NOTE | 2018-05-28 13:35 | Progress Note-Post Operative ---
Post-Operative Progess Note Surgeon (s)/Development Mechanic (s) Surgeon CECILIO WILKES MD Development Mechanic: mariana chavez TUBE SPLICER Pre-Operative Diagnosis Biliary Dyskinesia, Screening colonosocpy Post-Operative Diagnosis chronic calculous cholecystitis. mild chronic stage 2 ext and int hemorrhoids. Procedure & Operative Findings Date of Procedure 05/28/18 Procedure Performed/Findings laparoscopic cholecystectomy. Colonoscopy. Anesthesia Type GET Estimated Blood Loss Estimated blood loss (mL): minimal Specimens/Packing Specimens Removed gallbladder CECILIO WILKES MD May 28, 2018 13:35
[2018-05-28] MEDS ORDERED: HYDROmorphone 2 MG/ML VIAL (DILAUDID) IV ONE (13:45)
--- NOTE | 2018-05-28 13:55 | Anesthesia-General Post-Op ---
General Patient Condition Mental Status/LOC: Same as Preop Cardiovascular: Satisfactory Nausea/Vomiting: Absent Respiratory: Satisfactory Pain: Controlled Complications: Absent Post Op Complications Complications None Follow Up Care/Instructions Patient Instructions None needed. Anesthesia/Patient Condition Patient Condition Patient is doing well, no complaints, stable vital signs, no apparent adverse anesthesia problems. No complications reported per nursing. MELIZA QUINTANA CRNA May 28, 2018 13:55
[2018-05-28 14:35] VITALS: BP 129/87
[2018-05-28 15:05] VITALS: BP 130/76
[2018-05-28 15:36] VITALS: BP 127/72
--- NOTE | 2018-05-28 23:26 | OPERATIVE REPORT ---
DATE OF SERVICE: 05/28/2018 ATTENDING PRIMARY CARE PHYSICIAN: Dr. Miguel. PREOPERATIVE DIAGNOSIS: Biliary dyskinesia, screening colonoscopy. POSTOPERATIVE DIAGNOSES: Chronic calculous cholecystitis, chronic stage II external and internal hemorrhoids. PROCEDURE: Laparoscopic cholecystectomy and colonoscopy. SURGEON: Cecilio Wilkes MD DIRECTOR TEEN POST: Yohan Rose APRN. ANESTHESIA: General endotracheal. ESTIMATED BLOOD LOSS: Minimal. FINDINGS: A dilated gallbladder with omental adhesions to the body and fundus of the gallbladder with small gallstones identified on the back table. Chronic stage II external and internal hemorrhoids, not actively edematous nor inflamed and no bleeding. The remainder of the rectum and colon were normal. There were no polyps identified. DISPOSITION: The patient tolerated the procedure well. INDICATIONS: The patient is a 57-year-old female who has had pain in the right upper abdominal quadrant for the past several months on an intermittent basis. She reports that this has become much more worse and usually is initiated by eating greasy foods. She reports that she has had some milder episodes even in the past few years. An ultrasound was performed which did not show any gallstones; however, HIDA scan showed a low ejection fraction of 12% consistent with a biliary dyskinesia. She is also in need of a screening colonoscopy. She has not had a colonoscopy up to this point in her life. She reports for the most part she is doing well, does not report any red blood per rectum nor any dark tarry stools; however, does have some issues with constipation on an intermittent basis. DESCRIPTION OF PROCEDURE: The patient was brought to the operating room, laid supine on the table. After adequate IV pain and sedating medications and general endotracheal intubation, the abdomen was prepped and draped in standard surgical fashion. A 0.5% Marcaine with epinephrine was used to anesthetize the overlying skin in the left upper abdominal quadrant. A small transverse incision made using 15 blade. An 0 silk suture was applied to the medial aspect incision for traction and a Veress needle inserted with a low opening pressure of 0 mmHg and the abdomen was then insufflated to 15 mmHg pressure. The Veress needle removed and a 5 mm Xcel trocar placed followed by a 5 mm 45 degree angle laparoscope visualizing the peritoneal cavity. A 4-quadrant abdominal exploration was performed. There was a dilated gallbladder as well as omental adhesions to the body and fundus of the gallbladder consistent with chronic mild inflammation. Under direct visualization, we then proceed to place a supraumbilical 10 mm port after the skin and peritoneal lining were anesthetized using 0.5% Marcaine with epinephrine and a transverse skin incision made using 15 blade. In a similar fashion, a right upper abdominal quadrant 5 mm port was placed. The patient was then placed in reverse Trendelenburg position as well as plane right side up, left side down. The fundus of the gallbladder was then retracted anteriorly and superiorly and the omental adhesions were taken down using blunt dissection as well as electrocautery and hook instrument. The hepatoduodenal ligament was then opened using the hook instrument using cautery as well as blunt dissection. The entire critical view of safety was identified including the triangle of Calot as well as the cystic duct and artery as the only two structures going into the gallbladder as well as the cystic plate behind the proximal gallbladder. A timeout was then taken and the cystic duct and artery were then clipped proximally, distally and cut with EndoShears. The gallbladder was then dissected off the liver bed using electrocautery and hook instrument with visualization of good hemostasis as well as no leaking ducts of Luschka. The gallbladder was removed through the 10 mm port site using an EndoCatch bag. The 10 mm port site fascia and peritoneum were then closed under direct visualization using a Morgan-Kobi device and an 0 Vicryl suture. The abdomen was desufflated and remaining ports removed. All skin incisions were closed using 4-0 Monocryl running subcuticular sutures. Wounds were then cleaned and covered with Dermabond. The patient tolerated this portion of the procedure well. We will start IV normal pain medication as well as a clear liquid diet. Once she is tolerating clears, has good pain control with oral pain medications, ambulating well, we will discharge her home. She will be instructed to do no heavy lifting or exertion for the next two weeks. Under the same anesthesia, we then proceeded with colonoscopy portion of the procedure. A digital rectal examination was performed after the patient was placed in frog leg position supine. Mild chronic stage II external and internal hemorrhoids were identified, which were not actively edematous nor inflamed and no bleeding. Normal sphincter tone was felt and there were no palpable masses. The endoscope was then intubated to the anus and rectum gently insufflated. The endoscope was then advanced to the [facility] in the rectum. No polyps or any neoplasms identified. We then proceeded through the sigmoid colon where no diverticulosis identified. The endoscope was then advanced to the remainder of the descending, transverse and ascending colon to the cecum. These segments were normal. There were no polyps or any neoplasms identified throughout the colon or rectum. The endoscope was then slowly withdrawn while taking a second look and suctioning of residual air with no additional findings. The patient tolerated the procedure well. We will recommend that she follow a high fiber diet with at least 25 grams of fiber per day as well as at least 64 fluid ounces of water daily to promote soft stools on a daily basis. She does not need another colonoscopy for another 10 years. Job ID: [id number] DocumentID: [id number] Dictated Date: 05/28/2018 13:42:36 Service Captain Date: 05/28/2018 23:25:41 Dictated By: CECILIO WILKES MD
== END 2018-05-28 15:50 | disposition home or self-care (01) ==
LOC: SDC 09:38
PROVIDERS: ATTEND Surgery
DX: K81.1 Chronic cholecystitis (principal); K82.8 Other specified diseases of gallbladder; Z12.11 Encounter for screening for malignant neoplasm of colon; K64.1 Second degree hemorrhoids; E89.0 Postprocedural hypothyroidism; Z79.899 Other long term (current) drug therapy
CPT/HCPCS: 87081; 94664

== ENCOUNTER → 2022-03-25 | Outpatient (CLI) | payer BC ==
[~2022-03-25] MED LIST changes: +GADOTERATE 0.5 MMOL/ML (CLARISCAN) 15 ML VIAL IV ONE; +HYDR-34 PO
--- NOTE | 2022-03-25 12:14 | Diagnostic Imaging Report ---
INDICATION: Palpable abnormality in the medial thigh. EXAMINATION: Right lower extremity MRI with and without contrast on 03/25/2022. FINDINGS: There is a marker at the site of concern. This immediately overlies the sartorius muscle. Within the sartorius muscle, there is diffuse fatty infiltration and atrophy. No measurable mass is appreciated. There is no abnormal enhancement. The remaining visualized musculature is unremarkable. The visualized osseous structures are unremarkable. The hamstrings tendon origins are intact. The visualized intrapelvic structures are unremarkable. IMPRESSION: Diffuse fatty infiltration throughout the sartorius muscle which appears to correspond to the site of palpable concern. No associated measurable mass is seen. The remaining examination appears unremarkable. Dictated by: Dictated on workstation # [id number]
== END ==
LOC: RAD 09:47
PROVIDERS: ATTEND Internal Medicine
DX: M62.89 Other specified disorders of muscle (principal)
CPT/HCPCS: 73720

== ENCOUNTER 2022-04-30 05:33 | Outpatient (CLI) | payer BC ==
[~2022-04-30] VITALS: Ht 160 cm; Wt 65.0 kg
[~2022-04-30 05:33] MED LIST changes: -GADOTERATE 0.5 MMOL/ML (CLARISCAN) 15 ML VIAL IV ONE
[2022-04-30] MEDS ORDERED: LEVO50CA4 PO (12:22)
[2022-04-30] MEDS ORDERED: ESTR2TAB3 PO (12:22)
[2022-05-01] MEDS ORDERED: HYDR-3817 PO (14:28)
== END 2022-04-30 12:42 | disposition home or self-care (01) ==
LOC: PREOP 05:33
PROVIDERS: ATTEND Surgery
DX: Z01.818 Encounter for other preprocedural examination (principal)

== ENCOUNTER 2022-05-01 11:57 | Day surgery (SDC) | payer BC ==
[~2022-05-01] VITALS: Ht 160 cm; Wt 65.0 kg
[2022-05-01] VITALS (10 sets, daily range): BP systolic 113–160; BP diastolic 61–98
[~2022-05-01 11:57] MED LIST changes: +ESTR2TAB3 PO; +LEVO50CA4 PO
[2022-05-01] MEDS ORDERED: MIDAZOLAM 2 MG/2 ML (VERSED) VIAL IV ONE (12:30)
[2022-05-01] MEDS ORDERED: LACTATED RINGERS 1,000 ML IV PRN ×2 (12:30→13:00)
[2022-05-01] MEDS ORDERED: ceFAZolin INJECTION 2,000 MG ONE (13:14)
[2022-05-01] MEDS ORDERED: NS (IVPB) 50 ML ONE (13:14)
[2022-05-01] MEDS ORDERED: ceFAZolin INJECTION 2,000 MG in NS (IVPB) 50 ML IV ONE (13:15)
[2022-05-01] MEDS ORDERED: BUP/EPI 0.5% 1:200,000 (MARCAINE) 10ML VIAL IJ ONE (14:21)
--- NOTE | 2022-05-01 14:26 | Progress Note-Pre Operative ---
Pre-Operative Progress Note Date H&P Reviewed: May 01, 2022 Time H&P Reviewed: 14:25 History & Physical: H&P Reviewed, Patient Examed, No changes noted Pre-Operative Diagnosis: Right thigh mass SHIRA MAYBERRY APRN May 01, 2022 14:26
[2022-05-01] MEDS ORDERED: HYDR-3817 PO (14:28)
--- NOTE | 2022-05-01 14:28 | Discharge Inst-Surgical ---
D/C Lap Instructions-KIDO Reconcile Patient Problems Problems Reviewed?: Yes New, Converted, or Re-Newed RX: RX on Chart Follow Up Appt in 2 weeks Activity as tolerated No driving for 24 hours No driving while on pain medications Incentive Spirometry use every 2 hours while awake Regular Diet Symptoms to Report: Fever over 101 degree F, Nausea/Vomiting Infection Signs and Symptoms to report: Increased redness, Foul odor of wound, Increased drainage Bathing instructions: May shower Operative Area Clean/Dry; Keep incision clean/dry If any problems/questions: Contact your physician or go to Emergency Room SHIRA MAYBERRY APRN May 01, 2022 14:28
[2022-05-01] MEDS ORDERED: fentaNYL INJ 100 MCG/2 ML AMP ONE (14:30)
[2022-05-01] MEDS ORDERED: ACETAMINOPHEN 325 MG TABLET PO PRN (14:30)
[2022-05-01] MEDS ORDERED: ONDANSETRON 4 MG/2 ML (SDV) Z0FRAN IVP PRN ×2 (14:30→15:45)
[2022-05-01] MEDS ORDERED: MIDAZOLAM 2 MG/2 ML (VERSED) VIAL ONE (14:30)
[2022-05-01] MEDS ORDERED: HYDROcodone/APAP 5 MG/325 MG (LORTAB) TAB PO ONE (14:30)
[2022-05-01] MEDS ORDERED: morphine INJ 10 MG/ML 1ML (SYR OR VIAL) IVP PRN (14:30)
[2022-05-01] MEDS ORDERED: ONDANSETRON 4 MG/2 ML (SDV) Z0FRAN ONE (15:00)
[2022-05-01] MEDS ORDERED: SEVOFLURANE (ULTANE) 15 ML INHAL SOLN ONE (15:00)
[2022-05-01] MEDS ORDERED: PHENYLEPHRINE 100 MCG/ML 10 ML (ANESTHESIA) SYR ONE (15:00)
[2022-05-01] MEDS ORDERED: KETOROLAC 30 MG/ML VIAL ONE (15:23)
--- NOTE | 2022-05-01 15:26 | Progress Note-Post Operative ---
Post-Operative Progess Note Surgeon (s)/[facility] [employer] (s) Surgeon CECILIO WILKES MD [employer]: mariana chavez APRN Pre-Operative Diagnosis Right thigh mass Post-Operative Diagnosis right medial thigh submuscular lipoma 4x3cm. Procedure & Operative Findings Date of Procedure 05/01/22 Procedure Performed/Findings right medial thigh submuscular lipoma excision 4x3cm. Anesthesia Type general LMA with local Estimated Blood Loss Estimated blood loss (mL): minimal Specimens/Packing Specimens Removed right thigh lipoma CECILIO WILKES MD May 01, 2022 15:26
[2022-05-01] MEDS ORDERED: HYDROmorphone 2 MG/ML VIAL (DILAUDID) IV ONE (15:45)
--- NOTE | 2022-05-02 00:30 | OPERATIVE REPORT ---
DATE OF SERVICE: 05/01/2022 ATTENDING PRIMARY CARE PHYSICIAN: Dr. Brittany Miguel. PREOPERATIVE DIAGNOSIS: Symptomatic submuscular right medial thigh lipoma within the sartorius muscle. POSTOPERATIVE DIAGNOSIS: Symptomatic submuscular right medial thigh lipoma within the sartorius muscle with a lesion approximately 4 x 3 cm in size. PROCEDURE: Excision submuscular symptomatic lipoma, 4 x 3 cm in size. SURGEON: Cecilio Wilkes MD. PORT CRANE OPERATOR: Yohan Rose APRN. ANESTHESIA: General laryngeal mask airway with local. ESTIMATED BLOOD LOSS: Minimal. FINDINGS: Symptomatic submuscular right medial thigh lipoma within the sartorius muscle with a lesion approximately 4 x 3 cm in size. DISPOSITION: The patient tolerated the procedure well. INDICATIONS: The patient is a 61-year-old female known to us. We had seen her before for symptomatic biliary dyskinesia and had done a laparoscopic cholecystectomy as well as a screening colonoscopy. She was referred over to us for a symptomatic lesion of the medial right thigh. She reports that she first noticed this 4 years ago; however, over the past 2 months, she was returning home from a trip, which encompassed a lot of walking and she hit the lesion and the lesion became larger in size and painful. She was seen by her physician where an MRI was performed, which did show a diffuse fatty infiltration within the sartorius muscle consistent with a benign lipoma; however, much more symptomatic as time has progressed. DESCRIPTION OF PROCEDURE: The patient was brought to the operating room, laid supine on the table. After adequate IV pain and sedative medications and general laryngeal mask airway intubation, the right lower extremity was prepped and draped in standard surgical fashion. A 0.5% Marcaine with epinephrine was then used to anesthetize the overlying skin, fascia and sartorius muscle. An oblique incision along the glabellar lines was then made using a #15 blade. The subcutaneous tissue was then dissected out using electrocautery. The fascia overlying the muscle group was then identified and opened using electrocautery. The sartorius muscle was identified and the muscle fibers split using blunt dissection where a lipoma was identified and completely excised using blunt dissection as well as electrocautery. The lesion was approximately 4 x 3 cm in total size. Good hemostasis was observed. The fascia to the muscle was then closed using interrupted 3-0 Vicryl sutures. Subcutaneous tissue was then reapproximated with the same suture. Skin was closed using 4-0 Monocryl running subcuticular suture. The wound was then cleaned and covered with Dermabond. The patient tolerated the procedure well. POSTOPERATIVE PLAN: We will start IV and oral pain medication as well as a clear liquid diet. Once she was tolerating clears with good pain control with oral pain medications, ambulating well, we will discharge her home where her only restriction will be no heavy lifting or exertion for 2 weeks. Job ID: [id number] DocumentID: [id number] Dictated Date: 05/01/2022 15:31:52 Developer Advisor Date: 05/02/2022 00:28:00 Dictated By: CECILIO WILKES MD
--- NOTE | 2022-05-05 09:03 | Anesthesia-General Post-Op ---
General Patient Condition Mental Status/LOC: Same as Preop Cardiovascular: Satisfactory Nausea/Vomiting: Absent Respiratory: Satisfactory Pain: Controlled Complications: Absent Post Op Complications Complications None Follow Up Care/Instructions Patient Instructions None needed. Anesthesia/Patient Condition Patient Condition Patient is doing well, no complaints, stable vital signs, no apparent adverse anesthesia problems. No complications reported per nursing. [place] [facility] Yes RONALD CALLOWAY CRNA May 05, 2022 09:03
== END 2022-05-01 17:20 | disposition home or self-care (01) ==
LOC: SDC 11:57
PROVIDERS: ATTEND Surgery
DX: D17.23 Benign lipomatous neoplasm of skin and subcutaneous tissue of right leg (principal)
CPT/HCPCS: 87081; 88304